=== PATIENT | female | born 1975 | race African-American/Black ===

== ENCOUNTER 2019-11-30 08:45 | Inpatient (IN) ==
[2019-11-30 10:13] LABS: Apearance,Urine CLEAR (Clear); Bilirubin,Urine Negative (Negative); Blood, Urine Negative (Negative); Glucose,Urine (UA) 50 mg/dL (Negative); Ketones,Urine Negative (Negative); Nitrite,Urine Negative (Negative); Protein,Urine 100 MG/DL; RBC,Urine 1 /HPF (0-4); Squamous Epithelial Cell,Urine Occasional /HPF (0-10); Urine Color Straw (Yellow); Urine Specific Gravity 1.011 (1.001-1.035); Urine Urobilinogen < 2.0 EU/DL (0.2-1.0); WBC,Urine <1 /HPF (0-6)
[2019-11-30] MEDS ORDERED: ONDANSETRON 4 MG/2 ML VIAL IV STA ×2 (10:20→12:10)
[2019-11-30] MEDS ORDERED: SODIUM CHLORIDE 0.9% 1,000 ML IV STA ×3 (10:20→12:38)
[2019-11-30 10:27] LABS: Basophils % 0.3 % (0.0-0.8); Eosinophils # 0.1 10*3/uL (0.0-0.87); Eosinophils % 1.2 % (0.00-10.9); Hematocrit 33.4 VOL% (35.7-47.0); Hemoglobin 11.1 GM/DL (12.0-16.0); Immature Granulocytes % 0.6 %; Immature Granulocytes Absolute 0.04 #; Lymphocytes # 1.7 10*3/uL (1.4-4.0); Lymphocytes % 24.4 % (21.3-54.2); Mean Corpuscular HGB Conc 33.2 GM/DL (32-36); Mean Corpuscular Volume 89.3 FL (87-102); Mean Platelet Volume 11.3 FL (9.6-12.0); Monocytes % 7.9 % (1.7-12.7); Neutrophils % 65.6 % (38.7-73.9); Platelet Count 231 T/CUMM (130-400); Red Blood Count 3.74 MC/CUMM (3.8-5.5); Red Cell Distribution Width 13.5 % (9.3-17.3); White Blood Count 6.9 T/CUMM (4-12)
[2019-11-30 10:48] LABS: Alanine Aminotransferase 22 U/L (13-56); Albumin 3.4 G/DL (3.4-5.0); Alkaline Phosphatase 132 U/L (45-117); Aspartate Amino Transferase 13 U/L (0-37); Bilirubin,Total < 0.39 MG/DL (0.2-1.0); Blood Urea Nitrogen 49 MG/DL (7-18); Calcium 10.2 MG/DL (8.5-10.1); Estimated Glom Filtration Rate 35 ML/MIN; Glucose 210 MG/DL (74-106); Osmolality,Calculated 284.4 MOS/KG (273-304); Total Protein 8.9 G/DL (6.4-8.3)
[2019-11-30] MEDS ORDERED: ALUM/MAG/SIMETH/LIDO VISC 1:1 30 ML BOTTLE PO STA (11:47)
[2019-11-30] MEDS ORDERED: HEPARIN 5,000 UNIT/1 ML VIAL IV STA (12:10)
[2019-11-30] MEDS ORDERED: MORPHINE 4 MG/1 ML VIAL IV STA (12:10)
[2019-11-30] MEDS ORDERED: ASPIRIN CHEW 81 MG TABLET PO STA (12:10)
[2019-11-30] MEDS ORDERED: ASPIRIN 325 MG TABLET ONE (12:13)
[2019-11-30] MEDS ORDERED: EPTIFIBATIDE 20,000 MCG/10 ML VIAL IV ONE (12:26)
[2019-11-30] MEDS ORDERED: HYDROmorphone 2 MG/1 ML VIAL IV ONE (12:26)
[2019-11-30] MEDS ORDERED: MIDAZOLAM 2 MG/2 ML VIAL IV ONE (12:26)
[2019-11-30] MEDS ORDERED: LABETALOL 20 MG/4 ML SYRINGE IV ONE (12:26)
[2019-11-30] MEDS ORDERED: EPTIFIBATIDE 75 MG/100 ML BOTTLE IV ONE (12:26)
[2019-11-30] MEDS ORDERED: TICAGRELOR 90 MG TABLET PO ONE (12:45)
[2019-11-30] MEDS ORDERED: HEPARIN 5,000 UNIT/1 ML VIAL IV ONE (12:45)
[2019-11-30] MEDS ORDERED: EPTIFIBATIDE 75 MG/100 ML BOTTLE IV SCH (12:50)
[2019-11-30] MEDS ORDERED: ONDANSETRON 4 MG/2 ML VIAL IV PRN (13:18)
[2019-11-30] MEDS ORDERED: MAGNESIUM SULF RIDER 4 GM in PREMIX 1 EACH IV PRN (13:19)
[2019-11-30] MEDS ORDERED: MAGNESIUM SULF RIDER 2 GM in PREMIX 1 EACH IV PRN (13:19)
[2019-11-30] MEDS ORDERED: GLUCAGON 1 MG VIAL IM PRN ×2 (13:23→13:43)
[2019-11-30] MEDS ORDERED: DEXTROSE 50% 25 GM/50 ML VIAL IV PRN ×2 (13:23→13:43)
[2019-11-30] MEDS ORDERED: NITROGLYCERIN SL 0.4 MG TABLET SL PRN (13:23)
[2019-11-30] MEDS ORDERED: ZALEPLON 5 MG CAPSULE PO PRN (13:23)
[2019-11-30 13:26] LABS: INR 0.9; PT Patient Result 10.2 SECS (9.8-11.9); Partial Thromboplastin Time 23.3 SECS (23.9-33.8)
[2019-11-30] MEDS ORDERED: INSULIN NPH/REGULAR 70/30 100 UNIT/ML SUBCUT ONE (13:50)
[2019-11-30] MEDS ORDERED: POTASSIUM CHLORIDE 20 MEQ TABLET PO ONE ×2 (13:54→15:15)
[2019-11-30] MEDS ORDERED: hydrALAZINE 20 MG/1 ML VIAL IV PRN (14:04)
[2019-11-30 14:27] LABS: CKMB % 5.5 %
[2019-11-30 14:31] LABS: Troponin I 6.22 NG/ML (0.00-0.045)
[2019-11-30] MEDS ORDERED: SODIUM CHLORIDE 0.9% 1,000 ML IV SCH (15:00)
[2019-11-30] MEDS: INSULIN REGULAR 100 UNIT/ML SUBCUT SCH ×2 (17:33→20:39)
[2019-11-30] MEDS ORDERED: carvediloL 25 MG TABLET PO SCH (21:00)
[2019-11-30] MEDS: TICAGRELOR 90 MG TABLET PO SCH (21:01)
[2019-11-30] MEDS: ROSUVASTATIN 20 MG TABLET PO SCH (21:02)
[2019-11-30] MEDS: FLUTICASONE 50 MCG NASAL SPRAY 16 GM BOTTLE BOTH NARES SCH (21:02)
[2019-11-30 22:05] LABS: CKMB % 6.8 %
[2019-11-30 22:15] LABS: Troponin I 13.1 NG/ML (0.00-0.045)
[2019-12-01] MEDS: SODIUM CHLORIDE 0.9% 1,000 ML IV SCH ×3 (00:15→20:33)
[2019-12-01] MEDS ORDERED: NITROGLYCERIN 2% OINT 1 INCH/GM PACK TOP ONE (00:47)
[2019-12-01] MEDS ORDERED: MORPHINE 4 MG/1 ML VIAL IV PRN (00:48)
[2019-12-01 04:43] LABS: Basophils % 0.4 % (0.0-0.8); Eosinophils % 0.4 % (0.00-10.9); Hematocrit 29.2 VOL% (35.7-47.0); Hemoglobin 9.5 GM/DL (12.0-16.0); Immature Granulocytes % 0.4 %; Immature Granulocytes Absolute 0.03 #; Lymphocytes # 1.6 10*3/uL (1.4-4.0); Mean Corpuscular HGB Conc 32.5 GM/DL (32-36); Mean Corpuscular Volume 90.4 FL (87-102); Mean Platelet Volume 11.1 FL (9.6-12.0); Monocytes % 7.2 % (1.7-12.7); Neutrophils % 70.6 % (38.7-73.9); Platelet Count 209 T/CUMM (130-400); Red Blood Count 3.23 MC/CUMM (3.8-5.5); Red Cell Distribution Width 13.5 % (9.3-17.3); White Blood Count 7.8 T/CUMM (4-12)
[2019-12-01 05:19] LABS: Osmolality,Calculated 286.7 MOS/KG (273-304)
[2019-12-01 05:23] LABS: Albumin 2.7 G/DL (3.4-5.0); Bilirubin,Total 0.5 MG/DL (0.2-1.0); Calcium 9.1 MG/DL (8.5-10.1); Osmolality,Calculated 287.7 MOS/KG (273-304); Risk Ratio 3.97; Total Protein 7.1 G/DL (6.4-8.3); VLDL CHOLESTEROL 58.6 MG/DL
[2019-12-01 05:49] LABS: CKMB % 4.4 %
[2019-12-01 05:51] LABS: Troponin I 8.95 NG/ML (0.00-0.045)
[2019-12-01] MEDS: carvediloL 25 MG TABLET PO SCH ×2 (08:17→20:28)
[2019-12-01] MEDS: INSULIN NPH/REGULAR 70/30 100 UNIT/ML SUBCUT SCH (08:17)
[2019-12-01] MEDS: PANTOPRAZOLE 40 MG TABLET PO SCH (08:17)
[2019-12-01] MEDS: CETIRIZINE 10 MG TABLET PO SCH (08:17)
[2019-12-01] MEDS: FLUTICASONE 50 MCG NASAL SPRAY 16 GM BOTTLE BOTH NARES SCH ×2 (08:17→20:29)
[2019-12-01] MEDS: TICAGRELOR 90 MG TABLET PO SCH ×2 (08:18→20:29)
[2019-12-01] MEDS: ASPIRIN EC 81 MG TABLET PO SCH (08:18)
[2019-12-01] MEDS: INSULIN REGULAR 100 UNIT/ML SUBCUT SCH ×4 (08:18→20:28)
[2019-12-01] MEDS: amLODIPine 10 MG TABLET PO SCH (08:25)
[2019-12-01] MEDS: DOXAZOSIN 4 MG TABLET PO SCH ×2 (09:20→20:29)
[2019-12-01] MEDS: ROSUVASTATIN 20 MG TABLET PO SCH (20:29)
[2019-12-02] MEDS: SODIUM CHLORIDE 0.9% 1,000 ML IV SCH (05:38)
[2019-12-02 05:39] LABS: Basophils % 0.4 % (0.0-0.8); Eosinophils # 0.1 10*3/uL (0.0-0.87); Eosinophils % 0.8 % (0.00-10.9); Hematocrit 28.5 VOL% (35.7-47.0); Hemoglobin 9.4 GM/DL (12.0-16.0); Immature Granulocytes % 0.3 %; Immature Granulocytes Absolute 0.02 #; Lymphocytes # 2.1 10*3/uL (1.4-4.0); Lymphocytes % 26.4 % (21.3-54.2); Mean Corpuscular Volume 89.3 FL (87-102); Mean Platelet Volume 11.4 FL (9.6-12.0); Monocytes % 6.8 % (1.7-12.7); Neutrophils % 65.3 % (38.7-73.9); Platelet Count 184 T/CUMM (130-400); Red Blood Count 3.19 MC/CUMM (3.8-5.5); Red Cell Distribution Width 13.5 % (9.3-17.3); White Blood Count 7.8 T/CUMM (4-12)
[2019-12-02 05:53] LABS: Calcium 8.9 MG/DL (8.5-10.1); Osmolality,Calculated 281.7 MOS/KG (273-304)
[2019-12-02 05:55] LABS: Albumin 2.6 G/DL (3.4-5.0); Bilirubin,Total 0.4 MG/DL (0.2-1.0); Osmolality,Calculated 281.7 MOS/KG (273-304)
[2019-12-02] MEDS ORDERED: POTASSIUM CHLORIDE 20 MEQ TABLET PO ONE (07:14)
[2019-12-02] MEDS: INSULIN REGULAR 100 UNIT/ML SUBCUT SCH ×2 (08:23→14:13)
[2019-12-02] MEDS ORDERED: LOSARTAN 50 MG TABLET PO SCH (09:00)
[2019-12-02] MEDS: INSULIN NPH/REGULAR 70/30 100 UNIT/ML SUBCUT SCH (09:12)
[2019-12-02] MEDS: PANTOPRAZOLE 40 MG TABLET PO SCH (09:13)
[2019-12-02] MEDS: CETIRIZINE 10 MG TABLET PO SCH (09:13)
[2019-12-02] MEDS: TICAGRELOR 90 MG TABLET PO SCH (09:13)
[2019-12-02] MEDS: amLODIPine 10 MG TABLET PO SCH (09:14)
[2019-12-02] MEDS: carvediloL 25 MG TABLET PO SCH (09:14)
[2019-12-02] MEDS: ASPIRIN EC 81 MG TABLET PO SCH (09:15)
[2019-12-02] MEDS: DOXAZOSIN 4 MG TABLET PO SCH (09:15)
[2019-12-02] MEDS: FLUTICASONE 50 MCG NASAL SPRAY 16 GM BOTTLE BOTH NARES SCH (09:19)
[2019-12-02] MEDS ORDERED: ACETAMINOPHEN 325 MG TABLET PO PRN (10:14)
[2019-12-02 12:32] VITALS: BP 156/90
== END 2019-12-02 15:24 | disposition home or self-care (01) | DRG 247 ==
LOC: N.ED 08:45 → N.ICU 12:18 → N.EDINP 12:33 → N.ICU 15:18 → N.TELEN 12-01 15:42
PROVIDERS: ADMIT Internal Medicine Cardiovascular Disease; ATTEND Internal Medicine Cardiovascular Disease
PROC: CLCCHCL (ICD-10-PCS; 2019-11-30 13:15)

== ENCOUNTER 2020-09-14 13:19 | Observation (INO) ==
[2020-09-14 13:47] LABS: Basophils % 0.3 % (0.0-0.8); Eosinophils # 0.1 10*3/uL (0.0-0.87); Eosinophils % 1.1 % (0.00-10.9); Hemoglobin 11.1 GM/DL (12.0-16.0); Immature Granulocytes % 0.7 %; Immature Granulocytes Absolute 0.05 #; Lymphocytes # 1.8 10*3/uL (1.4-4.0); Lymphocytes % 24.4 % (21.3-54.2); Mean Corpuscular HGB Conc 32.6 GM/DL (32-36); Mean Platelet Volume 10.8 FL (9.6-12.0); Monocytes % 7.5 % (1.7-12.7); Platelet Count 238 T/CUMM (130-400); Red Blood Count 3.91 MC/CUMM (3.8-5.5); Red Cell Distribution Width 14.5 % (9.3-17.3); White Blood Count 7.6 T/CUMM (4-12)
[2020-09-14 13:57] LABS: INR 0.9; PT Patient Result 10.3 SECS (10.5-12.0); Partial Thromboplastin Time 22.5 SECS (23.9-33.8)
[2020-09-14 14:09] LABS: Alanine Aminotransferase 20 U/L (13-56); Albumin 3.4 G/DL (3.4-5.0); Alkaline Phosphatase 101 U/L (45-117); Aspartate Amino Transferase 11 U/L (0-37); Bilirubin,Total < 0.39 MG/DL (0.2-1.0); Blood Urea Nitrogen 62 MG/DL (7-18); Calcium 8.9 MG/DL (8.5-10.1); Carbon Dioxide 28 MMOL/L (21-32); Estimated Glom Filtration Rate 34 ML/MIN; Glucose 152 MG/DL (74-106); Osmolality,Calculated 295.7 MOS/KG (273-304); Potassium 3.2 MMOL/L (3.5-5.1); Sodium 138 MMOL/L (136-145); Total Protein 7.3 G/DL (6.4-8.2)
[2020-09-14] MEDS ORDERED: POTASSIUM CHLORIDE 20 MEQ TABLET PO STA (14:33)
[2020-09-14] MEDS ORDERED: SODIUM CHLORIDE 0.9% 1,000 ML IV STA (14:33)
[2020-09-14 14:49] LABS: Bilirubin,Urine Negative (Negative); Blood, Urine Negative (Negative); Glucose,Urine (UA) Negative (Negative); Ketones,Urine Negative (Negative); Nitrite,Urine Negative (Negative); Protein,Urine 30 MG/DL; RBC,Urine 2 /HPF (0-4); Squamous Epithelial Cell,Urine Occasional /HPF (0-10); Urine Appearance CLEAR (Clear); Urine Color Colorless (Yellow); Urine Specific Gravity 1.006 (1.001-1.035); Urine Urobilinogen < 2.0 EU/DL (0.2-1.0)
[2020-09-14] MEDS ORDERED: GLUCAGON 1 MG VIAL IM PRN (16:00)
[2020-09-14] MEDS ORDERED: ACETAMINOPHEN 325 MG TABLET PO PRN (16:00)
[2020-09-14] MEDS ORDERED: ONDANSETRON 4 MG/2 ML VIAL IV PRN (16:00)
[2020-09-14] MEDS ORDERED: DEXTROSE 50% 25 GM/50 ML VIAL IV PRN ×2 (16:00)
[2020-09-14] MEDS ORDERED: ENOXAPARIN 40 MG/0.4 ML SYRINGE SUBCUT SCH (16:00)
[2020-09-14] MEDS ORDERED: hydrALAZINE 20 MG/1 ML VIAL IV PRN (16:17)
[2020-09-14] MEDS ORDERED: MORPHINE 4 MG/1 ML VIAL IV PRN (16:23)
[2020-09-14] MEDS ORDERED: NITROGLYCERIN SL 0.4 MG TABLET SL PRN (16:23)
[2020-09-14] MEDS ORDERED: ASPIRIN 325 MG TABLET PO STA (16:24)
[2020-09-14 16:35] LABS: Folate 6.33 NG/ML (5.38-24.0)
[2020-09-14 17:18] LABS: Barbiturates Screen,Urine Negative (Negative); Benzodiazepines Screen,Urine Negative (Negative); Cannabinoid Screen,Urine Negative (Negative); Opiate Screen,Urine Negative (Negative); Phencyclidine Screen,Urine Negative (Negative)
[2020-09-14] MEDS: INSULIN LISPRO 100 UNIT/ML SUBCUT SCH ×2 (17:53→20:34)
[2020-09-14] MEDS: DOXAZOSIN 4 MG TABLET PO SCH (20:35)
[2020-09-14] MEDS: carvediloL 25 MG TABLET PO SCH (20:35)
[2020-09-14] MEDS: FLUTICASONE 50 MCG NASAL SPRAY 16 GM BOTTLE BOTH NARES SCH (20:38)
[2020-09-14] MEDS ORDERED: ROSUVASTATIN 20 MG TABLET PO SCH (21:00)
[2020-09-15 05:39] LABS: Basophils % 0.4 % (0.0-0.8); Eosinophils # 0.1 10*3/uL (0.0-0.87); Eosinophils % 0.8 % (0.00-10.9); Hematocrit 30.3 VOL% (35.7-47.0); Hemoglobin 9.8 GM/DL (12.0-16.0); Immature Granulocytes % 0.5 %; Immature Granulocytes Absolute 0.04 #; Lymphocytes % 26.6 % (21.3-54.2); Mean Corpuscular HGB Conc 32.3 GM/DL (32-36); Mean Corpuscular Volume 88.3 FL (87-102); Mean Platelet Volume 11.1 FL (9.6-12.0); Monocytes % 7.8 % (1.7-12.7); Neutrophils % 63.9 % (38.7-73.9); Platelet Count 206 T/CUMM (130-400); Red Blood Count 3.43 MC/CUMM (3.8-5.5); Red Cell Distribution Width 14.6 % (9.3-17.3); White Blood Count 7.3 T/CUMM (4-12)
[2020-09-15 06:05] LABS: Calcium 8.8 MG/DL (8.5-10.1); Osmolality,Calculated 294.7 MOS/KG (273-304); Potassium 3.5 MMOL/L (3.5-5.1); Risk Ratio 3.84; Thyroid Stimulating Hormone 1.33 uIU/ml (0.358-3.74)
[2020-09-15] MEDS ORDERED: CLOPIDOGREL 75 MG TABLET PO SCH (09:00)
[2020-09-15] MEDS ORDERED: POTASSIUM CHLORIDE 20 MEQ TABLET PO SCH (09:00)
[2020-09-15] MEDS ORDERED: ASPIRIN EC 81 MG TABLET PO SCH (09:00)
[2020-09-15] MEDS ORDERED: amLODIPine 10 MG TABLET PO SCH (09:00)
[2020-09-15] MEDS ORDERED: PANTOPRAZOLE 40 MG TABLET PO SCH (09:00)
[2020-09-15] MEDS ORDERED: ISOSORBIDE MONONITRATE 30 MG TABLET PO SCH (09:00)
[2020-09-15] MEDS: INSULIN LISPRO 100 UNIT/ML SUBCUT SCH ×3 (10:02→12:30)
[2020-09-15] MEDS: DOXAZOSIN 4 MG TABLET PO SCH (10:03)
[2020-09-15] MEDS: carvediloL 25 MG TABLET PO SCH (10:03)
[2020-09-15] MEDS: FLUTICASONE 50 MCG NASAL SPRAY 16 GM BOTTLE BOTH NARES SCH (10:04)
[2020-09-15 16:14] VITALS: BP 151/90
[2020-09-15] MEDS ORDERED: INSULIN NPH/REGULAR 70/30 100 UNIT/ML SUBCUT SCH (16:30)
[2020-09-16] MEDS ORDERED: INSULIN NPH/REGULAR 70/30 100 UNIT/ML SUBCUT SCH (07:30)
== END 2020-09-15 14:45 | disposition home or self-care (01) ==
LOC: N.ED 13:19 → N.EDINP 13:19 → N.TELEN 17:33
PROVIDERS: ADMIT Internal Medicine; ATTEND Internal Medicine

== ENCOUNTER 2021-01-06 02:13 | Observation (INO) ==
[2021-01-06] MEDS ORDERED: MORPHINE 2 MG/1 ML SYRINGE IV STA (02:34)
[2021-01-06] MEDS ORDERED: ONDANSETRON 4 MG/2 ML VIAL IV ONE (02:34)
[2021-01-06 02:56] LABS: Basophils % 0.3 % (0.0-0.8); Eosinophils # 0.1 10*3/uL (0.0-0.87); Eosinophils % 0.8 % (0.00-10.9); Hematocrit 30.9 VOL% (35.7-47.0); Hemoglobin 9.8 GM/DL (12.0-16.0); Immature Granulocytes % 0.5 %; Immature Granulocytes Absolute 0.04 #; Lymphocytes # 1.6 10*3/uL (1.4-4.0); Lymphocytes % 20.7 % (21.3-54.2); Mean Corpuscular HGB Conc 31.7 GM/DL (32-36); Mean Platelet Volume 10.9 FL (9.6-12.0); Monocytes % 7.4 % (1.7-12.7); Neutrophils % 70.3 % (38.7-73.9); Platelet Count 208 T/CUMM (130-400); Red Blood Count 3.47 MC/CUMM (3.8-5.5); Red Cell Distribution Width 14.4 % (9.3-17.3); White Blood Count 7.8 T/CUMM (4-12)
[2021-01-06 03:13] LABS: Alanine Aminotransferase 20 U/L (13-56); Albumin 3.5 G/DL (3.4-5.0); Alkaline Phosphatase 111 U/L (45-117); Aspartate Amino Transferase 11 U/L (0-37); Bilirubin,Total < 0.39 MG/DL (0.20-1.00); Blood Urea Nitrogen 43 MG/DL (7-18); Calcium 9.3 MG/DL (8.5-10.1); Carbon Dioxide 27 MMOL/L (21-32); Estimated Glom Filtration Rate 31 ML/MIN; Glucose 306 MG/DL (74-106); Osmolality,Calculated 290.2 MOS/KG (273-304); Potassium 3.5 MMOL/L (3.5-5.1); Sodium 134 MMOL/L (136-145)
[2021-01-06] MEDS ORDERED: HYDROmorphone 2 MG/1 ML VIAL IV STA (03:59)
[2021-01-06] MEDS ORDERED: LABETALOL 20 MG/4 ML SYRINGE IV STA (03:59)
[2021-01-06] MEDS ORDERED: ENOXAPARIN 30 MG/0.3 ML SYRINGE SUBCUT STA (04:05)
[2021-01-06] MEDS ORDERED: ENOXAPARIN 100 MG/ML SYRINGE SUBCUT ONE (04:18)
[2021-01-06] MEDS ORDERED: DEXTROSE 50% 25 GM/50 ML VIAL IV PRN (04:29)
[2021-01-06] MEDS ORDERED: MAGNESIUM SULF RIDER 4 GM/100 ML PREMIX IV PRN (04:29)
[2021-01-06] MEDS ORDERED: MAGNESIUM SULF RIDER 2 GM/50 ML PREMIX IV PRN (04:29)
[2021-01-06] MEDS ORDERED: GLUCAGON 1 MG VIAL IM PRN (04:29)
[2021-01-06] MEDS ORDERED: ACETAMINOPHEN 325 MG TABLET PO PRN (04:30)
[2021-01-06] MEDS ORDERED: POTASSIUM CHLORIDE RIDER 10 MEQ/100 ML PREMIX IV PRN (04:30)
[2021-01-06] MEDS ORDERED: hydrALAZINE 20 MG/1 ML VIAL IV PRN (04:30)
[2021-01-06] MEDS ORDERED: SIMETHICONE CHEW 125 MG TABLET PO PRN (04:30)
[2021-01-06] MEDS ORDERED: NITROGLYCERIN SL 0.4 MG TABLET SL PRN (09:40)
[2021-01-06] MEDS: PANTOPRAZOLE 40 MG TABLET PO SCH (09:43)
[2021-01-06] MEDS: DOCUSATE SODIUM 100 MG CAPSULE PO SCH ×2 (09:43→21:59)
[2021-01-06] MEDS: CLOPIDOGREL 75 MG TABLET PO SCH (09:43)
[2021-01-06] MEDS: DOXAZOSIN 4 MG TABLET PO SCH ×2 (09:43→21:58)
[2021-01-06] MEDS: amLODIPine 10 MG TABLET PO SCH (09:43)
[2021-01-06] MEDS: ASPIRIN EC 81 MG TABLET PO SCH (09:43)
[2021-01-06] MEDS: CETIRIZINE 10 MG TABLET PO SCH (09:43)
[2021-01-06] MEDS: FERROUS SULFATE 325 MG TABLET PO SCH (09:43)
[2021-01-06] MEDS: carvediloL 25 MG TABLET PO SCH ×2 (09:44→21:58)
[2021-01-06] MEDS: ISOSORBIDE MONONITRATE 30 MG TABLET PO SCH (09:44)
[2021-01-06] MEDS: FUROSEMIDE 40 MG/4 ML VIAL IV SCH (09:44)
[2021-01-06 10:08] LABS: Bacteria,Urine Occasional /HPF (Few); Bilirubin,Urine Negative (Negative); Blood, Urine Negative (Negative); Glucose,Urine (UA) 50 mg/dL (Negative); Ketones,Urine Negative (Negative); Nitrite,Urine Negative (Negative); Protein,Urine 100 MG/DL; RBC,Urine 3 /HPF (0-4); Squamous Epithelial Cell,Urine Occasional /HPF (0-10); Urine Appearance CLEAR (Clear); Urine Color Straw (Yellow); Urine Specific Gravity 1.011 (1.001-1.035); Urine Urobilinogen < 2.0 EU/DL (0.2-1.0)
[2021-01-06] MEDS: INSULIN REGULAR 100 UNIT/ML SUBCUT SCH ×4 (10:14→20:47)
[2021-01-06] MEDS: DULoxetine 30 MG CAPSULE PO SCH (10:15)
[2021-01-06] MEDS: POTASSIUM CHLORIDE 20 MEQ TABLET PO SCH (10:15)
[2021-01-06] MEDS: INSULIN NPH/REGULAR 70/30 100 UNIT/ML SUBCUT SCH (10:19)
[2021-01-06] MEDS: HYDROmorphone 2 MG/1 ML VIAL IV PRN ×3 (10:54→23:22)
[2021-01-06] MEDS: GABAPENTIN 300 MG CAPSULE PO SCH ×2 (15:05→21:58)
[2021-01-06] MEDS ORDERED: LEVOFLOXACIN INJ 750 MG/150 ML PREMIX IV SCH (16:00)
[2021-01-06] MEDS ORDERED: ROSUVASTATIN 20 MG TABLET PO SCH (21:00)
[2021-01-06] MEDS ORDERED: INSULIN NPH/REGULAR 70/30 100 UNIT/ML SUBCUT SCH (21:00)
[2021-01-06] MEDS: FLUTICASONE 50 MCG NASAL SPRAY 16 GM BOTTLE BOTH NARES SCH (21:59)
[2021-01-06] MEDS: ONDANSETRON 4 MG/2 ML VIAL IV PRN (23:24)
[2021-01-07] MEDS: ONDANSETRON 4 MG/2 ML VIAL IV PRN ×2 (05:03→10:38)
[2021-01-07] MEDS: HYDROmorphone 2 MG/1 ML VIAL IV PRN ×2 (05:03→10:41)
[2021-01-07 05:11] LABS: Basophils % 0.3 % (0.0-0.8); Eosinophils # 0.1 10*3/uL (0.0-0.87); Eosinophils % 1.5 % (0.00-10.9); Hematocrit 28.5 VOL% (35.7-47.0); Immature Granulocytes % 0.5 %; Immature Granulocytes Absolute 0.03 #; Lymphocytes # 1.4 10*3/uL (1.4-4.0); Mean Corpuscular HGB Conc 31.6 GM/DL (32-36); Mean Corpuscular Volume 89.9 FL (87-102); Mean Platelet Volume 11.2 FL (9.6-12.0); Monocytes % 7.9 % (1.7-12.7); Neutrophils % 66.8 % (38.7-73.9); Platelet Count 196 T/CUMM (130-400); Red Blood Count 3.17 MC/CUMM (3.8-5.5); Red Cell Distribution Width 14.3 % (9.3-17.3); White Blood Count 6.1 T/CUMM (4-12)
[2021-01-07 05:54] LABS: Calcium 9.1 MG/DL (8.5-10.1); Potassium 3.8 MMOL/L (3.5-5.1); Risk Ratio 2.73; Thyroid Stimulating Hormone 1.2 uIU/ml (0.358-3.74); VLDL Cholesterol 35.4 MG/DL
[2021-01-07] MEDS ORDERED: ENOXAPARIN 100 MG/ML SYRINGE SUBCUT SCH (06:00)
[2021-01-07] MEDS: INSULIN NPH/REGULAR 70/30 100 UNIT/ML SUBCUT SCH (09:04)
[2021-01-07] MEDS: DOXAZOSIN 4 MG TABLET PO SCH (09:05)
[2021-01-07] MEDS: DULoxetine 30 MG CAPSULE PO SCH (09:05)
[2021-01-07] MEDS: CLOPIDOGREL 75 MG TABLET PO SCH (09:05)
[2021-01-07] MEDS: ISOSORBIDE MONONITRATE 30 MG TABLET PO SCH (09:05)
[2021-01-07] MEDS: ASPIRIN EC 81 MG TABLET PO SCH (09:05)
[2021-01-07] MEDS: DOCUSATE SODIUM 100 MG CAPSULE PO SCH (09:05)
[2021-01-07] MEDS: GABAPENTIN 300 MG CAPSULE PO SCH ×2 (09:06→14:45)
[2021-01-07] MEDS: PANTOPRAZOLE 40 MG TABLET PO SCH (09:06)
[2021-01-07] MEDS: CETIRIZINE 10 MG TABLET PO SCH (09:06)
[2021-01-07] MEDS: FERROUS SULFATE 325 MG TABLET PO SCH (09:06)
[2021-01-07] MEDS: POTASSIUM CHLORIDE 20 MEQ TABLET PO SCH (09:06)
[2021-01-07] MEDS: amLODIPine 10 MG TABLET PO SCH (09:06)
[2021-01-07] MEDS: carvediloL 25 MG TABLET PO SCH (09:07)
[2021-01-07] MEDS: INSULIN REGULAR 100 UNIT/ML SUBCUT SCH ×2 (09:17→12:36)
[2021-01-07] MEDS: FLUTICASONE 50 MCG NASAL SPRAY 16 GM BOTTLE BOTH NARES SCH (09:18)
[2021-01-07] MEDS: FUROSEMIDE 40 MG/4 ML VIAL IV SCH (09:18)
[2021-01-07 11:39] VITALS: BP 160/86
[2021-01-07] MEDS ORDERED: LEVOFLOXACIN 500 MG TABLET PO SCH (14:00)
[2021-01-07] MEDS ORDERED: CYCLOBENZAPRINE 10 MG TABLET PO PRN (14:01)
[2021-01-07] MEDS ORDERED: POLYETHYLENE GLYCOL POWDER 17 GM PACK PO PRN (14:03)
[2021-01-07] MEDS ORDERED: CYCLOBENZAPRINE 10 MG TABLET PO SCH (15:00)
[2021-01-07] MEDS ORDERED: ONDANSETRON 4 MG TABLET PO PRN (15:23)
[2021-01-07] MEDS ORDERED: ONDANSETRON 4 MG TABLET PO SCH (18:00)
== END 2021-01-07 16:46 | disposition home or self-care (01) ==
LOC: N.EDINP 02:13 → N.ED 02:13 → N.EDINP 05:11 → N.TELES 05:41
PROVIDERS: ADMIT Hospitalist; ATTEND Hospitalist